=== PATIENT | female | born 1965 | race Caucasian/White ===

== ENCOUNTER 2018-03-25 11:52 | Emergency (ER) | payer OTHER ==
[~2018-03-25] VITALS: Ht 170.2 cm; Wt 68.0 kg
[2018-03-25] MEDS ORDERED: VENLAFAXINE HCL75 MG PO (12:04)
[2018-03-25] MEDS ORDERED: ZESTRIL5 MG PO (12:04)
[2018-03-25] MEDS ORDERED: TRAZODONE HCL150 MG PO (12:04)
[2018-03-25] MEDS ORDERED: ACYCLOVIR400 MG PO (12:05)
[2018-03-25] MEDS ORDERED: MONTELUKAST SOD10 MG PO (12:05)
[2018-03-25] MEDS ORDERED: IBUPROFEN600 MG PO (14:26)
[2018-03-25] MEDS ORDERED: NORCO 5-325 TA1 EACH PO (14:26)
[2018-03-25] MEDS ORDERED: TOBRAMYCIN5 ML OPTH (14:26)
== END 2018-03-25 14:42 | disposition home or self-care (01) ==
LOC: ED 11:52
DX: S05.12XA Contusion of eyeball and orbital tissues, left eye, initial encounter (principal); W22.8XXA Striking against or struck by other objects, initial encounter; Z88.8 Allergy status to other drugs, medicaments and biological substances; Z79.899 Other long term (current) drug therapy
CPT/HCPCS: 70486; 90471; 90715; 99283

== ENCOUNTER 2019-04-04 17:07 | Emergency (ER) | payer OTHER ==
[~2019-04-04] VITALS: Ht 170.2 cm; Wt 68.0 kg
[~2019-04-04 17:07] MED LIST: ACYCLOVIR400 MG PO; IBUPROFEN600 MG PO; MONTELUKAST SOD10 MG PO; NORCO 5-325 TA1 EACH PO; TOBRAMYCIN5 ML OPTH; TRAZODONE HCL150 MG PO; VENLAFAXINE HCL75 MG PO; ZESTRIL5 MG PO
[2019-04-04] MEDS ORDERED: ZITHROMAX250 MG PO (18:23)
== END 2019-04-04 18:34 | disposition home or self-care (01) ==
LOC: ED 17:07
DX: J02.9 Acute pharyngitis, unspecified (principal); Z88.8 Allergy status to other drugs, medicaments and biological substances; Z79.899 Other long term (current) drug therapy
CPT/HCPCS: 87880; 99283